=== PATIENT | male | born 1995 | race African-American/Black ===

== ENCOUNTER 2016-12-28 23:12 | Emergency (ER) | payer SELFPAY | END 2016-12-28 23:40 | disposition left against medical advice (07) | LOC: MADERS 23:12 | DX: Z53.21 Procedure and treatment not carried out due to patient leaving prior to being seen by health care provider (principal) ==

== ENCOUNTER 2017-03-19 19:44 | Emergency (ER) | payer SELFPAY ==
[2017-03-19] MEDS ORDERED: AMOXicillin 250 MG CAP ONE (20:28)
[2017-03-19] MEDS ORDERED: Acetaminophen 500 MG TAB ONE (20:29)
[2017-03-19] MEDS ORDERED: Benzonatate 100 MG CAP ONE (20:29)
== END 2017-03-19 20:35 | disposition home or self-care (01) ==
LOC: MADERS 19:44
DX: J20.9 Acute bronchitis, unspecified (principal); F17.210 Nicotine dependence, cigarettes, uncomplicated
CPT/HCPCS: 99283

== ENCOUNTER 2017-06-25 14:01 | Emergency (ER) | payer SELFPAY | END 2017-06-25 14:30 | disposition home or self-care (01) | LOC: MADERS 14:01 | DX: R11.2 Nausea with vomiting, unspecified (principal); R19.7 Diarrhea, unspecified; F17.210 Nicotine dependence, cigarettes, uncomplicated | CPT/HCPCS: 99283 ==

== ENCOUNTER 2019-04-24 17:08 | Emergency (ER) | payer SELFPAY ==
[2019-04-24] MEDS ORDERED: Acetaminophen 500 MG TAB ONE (17:18)
== END 2019-04-24 17:56 | disposition home or self-care (01) ==
LOC: MADERS 17:08
DX: J02.9 Acute pharyngitis, unspecified (principal); F17.210 Nicotine dependence, cigarettes, uncomplicated; Z71.6 Tobacco abuse counseling
CPT/HCPCS: 87081; 87430; 99406

== ENCOUNTER 2019-04-25 21:38 | Emergency (ER) | payer SELFPAY ==
[2019-04-25] MEDS ORDERED: Acetaminophen 500 MG TAB ONE (22:04)
[2019-04-25] MEDS ORDERED: Bicillin LA 1.2 MILLION UNITS/2 ML SYRINGE ONE (22:04)
== END 2019-04-25 22:50 | disposition home or self-care (01) ==
LOC: MADERS 21:38
DX: J03.90 Acute tonsillitis, unspecified (principal); F17.210 Nicotine dependence, cigarettes, uncomplicated
CPT/HCPCS: 96372; 99283; J0561